=== PATIENT | female | born 2000 | race Caucasian/White ===

== ENCOUNTER 2022-02-20 18:12 | Emergency (ER) | payer SELFPAY | END 2022-02-20 20:00 | disposition home or self-care (01) | LOC: CSHERS 18:12 | DX: L05.91 Pilonidal cyst without abscess (principal) | CPT/HCPCS: 99283 ==

== ENCOUNTER 2022-02-21 08:06 | Emergency (ER) | payer SELFPAY | END 2022-02-21 08:50 | disposition home or self-care (01) | LOC: CSHERS 08:06 | DX: L29.0 Pruritus ani (principal); Z79.899 Other long term (current) drug therapy | CPT/HCPCS: 99282 ==

== ENCOUNTER 2022-02-28 09:36 | Emergency (ER) | payer SELFPAY ==
[2022-02-28] MEDS ORDERED: Lidocaine 1% (PF) 30 ML VIAL ONE (11:01)
[2022-02-28] MEDS ORDERED: Morphine 4 MG/ML VIAL ONE ×3 (11:01→11:55)
== END 2022-02-28 12:18 | disposition home or self-care (01) ==
LOC: CSHERS 09:36
DX: L05.01 Pilonidal cyst with abscess (principal)
CPT/HCPCS: 10080; 87070; 87205; 96372; J2001; J2270

== ENCOUNTER 2022-03-02 12:28 | Emergency (ER) | payer SELFPAY | END 2022-03-02 13:50 | disposition home or self-care (01) | LOC: CSHERS 12:28 | DX: L05.01 Pilonidal cyst with abscess (principal) | CPT/HCPCS: 99282 ==